=== PATIENT | male | born 1945 | race Caucasian/White ===

== ENCOUNTER 2018-12-29 11:45 | Outpatient (CLI) | payer MEDICARE ==
--- NOTE | 2018-12-29 12:18 | CT ---
CT Pulmonary Lung Scan HISTORY: 50+ years smoking history. COMPARISON: None. FINDINGS: The lungs are clear of any infiltrative process. There are multiple calcified granulomas an d calcified right hilar lymph nodes present. There is a 10 mm area of groundglass opacity within the right upper lobe with a small 3 mm nodular focus directly adjacent to this which could represent a solid component is not definitely related to vessel. Coronary artery calcifications are present. Visualized liver parenchyma shows no focal findings. IMPRESSION: 1. Lung RADS category 2-benign findings. Annual follow-up is recommended for reassessment of the grou ndglass nodule in the right upper lobe. 2. Subcategory S: Moderate coronary artery calcifications are present.
== END 2018-12-29 11:46 | disposition home or self-care (01) ==
LOC: CT 11:45
PROVIDERS: ATTEND Family Medicine
DX: Z12.2 Encounter for screening for malignant neoplasm of respiratory organs (principal); F17.210 Nicotine dependence, cigarettes, uncomplicated; I25.10 Atherosclerotic heart disease of native coronary artery without angina pectoris; R91.1 Solitary pulmonary nodule
CPT/HCPCS: G0297

== ENCOUNTER 2020-02-15 13:05 | Outpatient (CLI) | payer MEDICARE, OTHER ==
--- NOTE | 2020-02-15 14:03 | ULT ---
Renal sonogram HISTORY: Abnormal CT scan. Renal masses. Probable cysts. COMPARISON: 02/02/2020 CT. FINDINGS: Right kidney is 9.7 cm length. No hydronephrosis or solid mass apparent. At the superior po le is a small cortical cyst measuring up to 1.4 cm. Bladder is well distended with small diverticulum. Left kidney measures up to 10.2 cm. No hydronephrosis. Along the medial aspect of the renal cortex an teriorly, a lobular, slightly irregular shaped hypoechoic lesion is 2.0 cm x 1.9 cm x 1.8 cm greatest diameters. This is in the general location of the area of concern on recent CT scan. Given t he wall irregularity and echogenicity, it cannot be confidently characterized as a simple cyst. An exophytic cyst at the anterior cortex of the left kidney on recent CT is not well imaged on today's s tudy. IMPRESSION : Left renal lesion has a complex, partially cystic appearance on today's sonogram and cannot be confid ently characterized as a simple cyst, so that further evaluation is required. Please consider dedicated CT of the kidneys, without and with IV contrast, for better characterizatio n. If iodine contrast is unable to be administered, a follow-up renal sonogram in 6 months would be appropriate (given that noncontrast CT does not well characterize the lesion). Small right renal cyst. Urinary bladder diverticula suggestive of chronic bladder outlet obstruction.
== END 2020-02-15 13:06 | disposition home or self-care (01) ==
LOC: BICULT 13:05
PROVIDERS: ATTEND Family Medicine
DX: Q63.9 Congenital malformation of kidney, unspecified (principal); N28.1 Cyst of kidney, acquired; N28.89 Other specified disorders of kidney and ureter; N32.3 Diverticulum of bladder
CPT/HCPCS: 76770

== ENCOUNTER 2020-09-26 12:32 | Outpatient (CLI) | payer MEDICARE, OTHER ==
[~2020-09-26 12:32] MED LIST: Iopamidol-370 76% 500 ML 1 ML ONE
[2020-09-26 13:07] LABS: Estimated GFR-MDRD - POC Greater than 90
== END 2020-09-26 12:33 | disposition home or self-care (01) ==
LOC: BICCT 12:32
PROVIDERS: ATTEND Family Medicine
DX: N28.1 Cyst of kidney, acquired (principal)
CPT/HCPCS: 74170; 82565; Q9967

== ENCOUNTER 2021-02-02 06:51 | Outpatient (CLI) | payer MEDICARE, OTHER ==
[2021-02-02] MEDS ORDERED: Magnevist 469MG/ML 20 ML VIAL ONE (10:30)
== END 2021-02-02 06:52 | disposition home or self-care (01) ==
LOC: BICMRI 06:51
PROVIDERS: ATTEND Family Medicine
DX: Z12.2 Encounter for screening for malignant neoplasm of respiratory organs (principal); G62.9 Polyneuropathy, unspecified; Z98.890 Other specified postprocedural states; F17.210 Nicotine dependence, cigarettes, uncomplicated; N20.0 Calculus of kidney; N28.1 Cyst of kidney, acquired; R91.1 Solitary pulmonary nodule; M47.27 Other spondylosis with radiculopathy, lumbosacral region; M51.17 Intervertebral disc disorders with radiculopathy, lumbosacral region; M48.061 Spinal stenosis, lumbar region without neurogenic claudication
CPT/HCPCS: 71271; 72158; A9579

== ENCOUNTER 2022-02-04 12:45 | Outpatient (CLI) | payer MEDICARE | END 2022-02-04 12:46 | disposition home or self-care (01) | LOC: BICCT 12:45 | PROVIDERS: ATTEND Family Medicine | DX: Z12.2 Encounter for screening for malignant neoplasm of respiratory organs (principal); F17.210 Nicotine dependence, cigarettes, uncomplicated | CPT/HCPCS: 71271 ==

== ENCOUNTER 2025-05-20 09:49 | Outpatient (CLI) | payer MEDICARE, OTHER ==
[2025-05-20 10:32] LABS: Estimated GFR - POC 88.0
[2025-05-20] MEDS ORDERED: Iopamidol 370 76% 100 ML VIAL ONE (11:15)
== END 2025-05-20 09:50 | disposition home or self-care (01) ==
LOC: CT 09:49
PROVIDERS: ATTEND Family Medicine
DX: R91.1 Solitary pulmonary nodule (principal)
CPT/HCPCS: 36415; 71260; 82565; Q9967